=== PATIENT | male | born 1940 | race Caucasian/White ===

== ENCOUNTER 2016-11-24 17:00 | Inpatient (IN) | payer OTHER ==
[~2016-11-24] VITALS: Ht 160 cm; Wt 77.8 kg
[~2016-11-24 17:00] MED LIST: ALEVE220 M1 PO; AMLODIPINE BES2.5 MG PO; Aspirin Chewable PO; DOCUSATE SODIU100 MG PO; ERGOCALCIF50000 UNIT PO; L-LYSINE500 M1 PO; LOPRESSOR50 MG PO; Lofibra,Triglide PO; MEDROL DOSEPAK4 MG PO; MODURETIC 5/1 TABLET PO; Norco 7.5/325 PO; PARAFON FORTE500 MG PO; PAXIL10 MG PO; PHENERGAN-CODE120 ML PO; Paxil PO; RENVELA800 MG PO; TOPROL XL50 MG PO; TRICOR145 MG PO; TRILIPIX135 MG PO; TYLENOL EXTRA500 MG PO; Vicodin,Lortab 5/500 PO; ZOCOR20 MG PO; Zocor PO
[2016-11-24 17:23] LABS: POINT-OF-CARE METER ID UU13113702
[2016-11-24 18:24] LABS: EOSINOPHIL (%) 4.1 % (0-5); EOSINOPHIL COUNT 0.4 K/uL (0-0.3); HEMATOCRIT 42.8 % (38.0-50.0); IMMATURE GRANULOCYTE (%) 0.3 % (0.0-0.7); IMMATURE GRANULOCYTE COUNT 0.3 K/uL; MCH 30.5 PG (29.0-34.0); MCHC 32.2 G/DL (30.0-36.0); MCV 94.7 FL (86-99); MEAN PLAT.VOLUME 8.9 uM^3 (9.0-12.4); MONOCYTE (%) 3.3 % (3-12); MONOCYTE COUNT 0.3 K/uL (0-0.8); NEUTROPHIL (%) 81.2 % (45-76); NEUTROPHIL COUNT 7.6 K/uL (1.8-6.4); PLATELET COUNT 282 K/uL (156-360); RBC DIS.WIDTH-CV 15.9 % (11.8-14.6); RBC DIS.WIDTH-SD 52.1 % (39-53); RED BLOOD COUNT 4.52 M/uL (4.00-5.50); WHITE BLOOD COUNT 9.4 K/uL (4.1-10.2)
[2016-11-24 18:31] LABS: CHLORIDE 99 mEq/L (99-109); POTASSIUM 4.4 mEq/L (3.7-5.4); SODIUM 140 mEq/L (136-147)
[2016-11-24 18:34] LABS: GLUCOSE 130 mg/dL (70-99)
[2016-11-24 18:35] LABS: ANION GAP 13 MEQ/L (2-14); TOTAL BILIRUBIN 0.3 mg/dL (0.0-1.0)
[2016-11-24 18:37] LABS: ALKALINE PHOSPHATASE 61 IU/L (3-129); GFR ESTIMATE (CALCULATED) 19 mL/min/
[2016-11-24 18:38] LABS: UREA NITROGEN (BUN) 21 mg/dL (9-23)
[2016-11-24 18:56] LABS: TROP-I INTERPRETATION NEGATIVE; TROPONIN-I < 0.01 ng/mL (0.0-0.30)
[2016-11-24] MEDS ORDERED: [UNRECOGNIZED DRUG - OTHER] PO (20:28)
[2016-11-24] MEDS ORDERED: INJECTION (20:30)
[2016-11-24] MEDS ORDERED: RENAPLEX D PO (20:33)
[2016-11-24] MEDS ORDERED: NEPHRO-VITE RX1 EACH PO (20:39)
[2016-11-25 01:15] LABS: TROP-I INTERPRETATION NEGATIVE; TROPONIN-I < 0.01 ng/mL (0.0-0.30)
[2016-11-25 02:45] VITALS: BP 139/74; BP 99/58
[2016-11-25 07:06] LABS: EOSINOPHIL (%) 2.5 % (0-5); EOSINOPHIL COUNT 0.2 K/uL (0-0.3); HEMATOCRIT 37.5 % (38.0-50.0); IMMATURE GRANULOCYTE (%) 0.3 % (0.0-0.7); LYMPHOCYTE COUNT 1.5 K/uL (1.0-2.8); MCH 30.2 PG (29.0-34.0); MCHC 31.5 G/DL (30.0-36.0); MCV 95.9 FL (86-99); MEAN PLAT.VOLUME 9.6 uM^3 (9.0-12.4); MONOCYTE (%) 4.6 % (3-12); MONOCYTE COUNT 0.3 K/uL (0-0.8); NEUTROPHIL COUNT 5.1 K/uL (1.8-6.4); PLATELET COUNT 256 K/uL (156-360); RBC DIS.WIDTH-CV 15.9 % (11.8-14.6); RBC DIS.WIDTH-SD 55.3 % (39-53); RED BLOOD COUNT 3.91 M/uL (4.00-5.50); WHITE BLOOD COUNT 7.2 K/uL (4.1-10.2)
[2016-11-25 07:09] LABS: TROP-I INTERPRETATION NEGATIVE; TROPONIN-I 0.02 ng/mL (0.0-0.30)
[2016-11-25 07:17] LABS: ALKALINE PHOSPHATASE 52 IU/L (3-129); ANION GAP 8 MEQ/L (2-14); CHLORIDE 103 MEQ/L (99-109); GFR ESTIMATE (CALCULATED) 16 mL/min/; POTASSIUM 4.3 MEQ/L (3.7-5.4); SAMPLE HEMOLYSIS CHECK 0; SAMPLE ICTERIC CHECK 0; SAMPLE LIPEMIA CHECK 0; SODIUM 139 MEQ/L (136-147); TOTAL BILIRUBIN 0.4 MG/DL (0.0-1.0); UREA NITROGEN (BUN) 26 mg/dL (9-23)
[2016-11-25 07:18] LABS: GLUCOSE 93 mg/dL (70-99)
[2016-11-25 08:00] VITALS: BP 174/81
[2016-11-25 16:00] VITALS: BP 132/61
[2016-11-25 20:00] VITALS: BP 178/93
[2016-11-25 20:19] LABS: POINT-OF-CARE METER ID UU13113807
[2016-11-25 20:40] LABS: HEMATOCRIT 39.8 % (38.0-50.0); MCH 30.7 PG (29.0-34.0); MCHC 31.9 G/DL (30.0-36.0); MCV 96.1 FL (86-99); MEAN PLAT.VOLUME 9.6 uM^3 (9.0-12.4); PLATELET COUNT 256 K/uL (156-360); RBC DIS.WIDTH-CV 15.7 % (11.8-14.6); RBC DIS.WIDTH-SD 54.5 % (39-53); RED BLOOD COUNT 4.14 M/uL (4.00-5.50); WHITE BLOOD COUNT 7.2 K/uL (4.1-10.2)
[2016-11-25 20:50] LABS: POINT-OF-CARE METER ID UU13113807
[2016-11-25 20:53] LABS: ANION GAP 9 MEQ/L (2-14); CHLORIDE 99 MEQ/L (99-109); D-DIMER ELISA 0.42 mg/L FEU (< 0.57); POTASSIUM 4.3 MEQ/L (3.7-5.4); SAMPLE HEMOLYSIS CHECK 0; SAMPLE ICTERIC CHECK 0; SAMPLE LIPEMIA CHECK 0; SODIUM 136 MEQ/L (136-147)
[2016-11-25 20:54] LABS: TOTAL BILIRUBIN 0.3 MG/DL (0.0-1.0)
[2016-11-25 21:00] LABS: ALKALINE PHOSPHATASE 55 IU/L (3-129); GFR ESTIMATE (CALCULATED) 15 mL/min/; GLUCOSE 105 mg/dL (70-99); UREA NITROGEN (BUN) 33 mg/dL (9-23)
[2016-11-25 21:02] LABS: TROP-I INTERPRETATION NEGATIVE; TROPONIN-I 0.02 ng/mL (0.0-0.30)
[2016-11-26 00:10] VITALS: BP 172/72
[2016-11-26 06:09] VITALS: BP 172/76
[2016-11-26 09:28] LABS: HEMATOCRIT 35.6 % (38.0-50.0); MCH 30.3 PG (29.0-34.0); MCV 94.7 FL (86-99); MEAN PLAT.VOLUME 9.5 uM^3 (9.0-12.4); PLATELET COUNT 240 K/uL (156-360); RBC DIS.WIDTH-CV 15.6 % (11.8-14.6); RBC DIS.WIDTH-SD 53.7 % (39-53); RED BLOOD COUNT 3.76 M/uL (4.00-5.50); WHITE BLOOD COUNT 5.6 K/uL (4.1-10.2)
[2016-11-26 09:52] LABS: ANION GAP 8 MEQ/L (2-14); CHLORIDE 105 MEQ/L (99-109); POTASSIUM 4.2 MEQ/L (3.7-5.4); SAMPLE HEMOLYSIS CHECK 0; SAMPLE ICTERIC CHECK 0; SAMPLE LIPEMIA CHECK 0; SODIUM 138 MEQ/L (136-147)
[2016-11-26 09:57] LABS: GFR ESTIMATE (CALCULATED) 15 mL/min/; GLUCOSE 84 mg/dL (70-99); UREA NITROGEN (BUN) 36 mg/dL (9-23)
[2016-11-26 16:00] VITALS: BP 172/75
[2016-11-26 21:00] VITALS: BP 154/78
[2016-11-27 07:22] LABS: ANION GAP 7 MEQ/L (2-14); CHLORIDE 105 MEQ/L (99-109); GFR ESTIMATE (CALCULATED) 21 mL/min/; GLUCOSE 77 mg/dL (70-99); POTASSIUM 4.3 MEQ/L (3.7-5.4); SAMPLE HEMOLYSIS CHECK 0; SAMPLE ICTERIC CHECK 0; SAMPLE LIPEMIA CHECK 0; SODIUM 138 MEQ/L (136-147); UREA NITROGEN (BUN) 20 mg/dL (9-23)
[2016-11-27 08:54] VITALS: BP 159/77
[2016-11-27 12:19] VITALS: BP 152/72
== END 2016-11-27 15:15 | disposition home or self-care (01) | DRG 312 ==
LOC: EME 17:00 → 4SOUTH 20:32 → EDOF 20:32 → 4SOUTH 11-25 02:39
PROVIDERS: Emergency Medicine; Internal Medicine; Internal Medicine Nephrology; Physician Assistant
PROC: 5A1D00Z (ICD-10-PCS; principal; 2016-11-26)
DX: I95.1 Orthostatic hypotension (principal); N18.6 End stage renal disease; F02.81 Dementia in other diseases classified elsewhere, unspecified severity, with behavioral disturbance; G47.33 Obstructive sleep apnea (adult) (pediatric); G47.411 Narcolepsy with cataplexy; I25.10 Atherosclerotic heart disease of native coronary artery without angina pectoris; E78.5 Hyperlipidemia, unspecified; M47.9 Spondylosis, unspecified; G30.9 Alzheimer's disease, unspecified
CPT/HCPCS: 71010; 71020; 80048; 80053; 82948; 84484; 85025; 85027; 85379; 93005; 93306; 99281; 99285; G0378; J1630; J1644; J2060; J7030; J7040

== ENCOUNTER 2017-01-02 13:04 | Observation (INO) | payer OTHER ==
[~2017-01-02] VITALS: Ht 170.2 cm; Wt 79.5 kg
[~2017-01-02 13:04] MED LIST changes: +INJECTION; +NEPHRO-VITE RX1 EACH PO; +RENAPLEX D PO; +[UNRECOGNIZED DRUG - OTHER] PO
[2017-01-02 14:11] LABS: EOSINOPHIL (%) 8.2 % (0-5); EOSINOPHIL COUNT 0.6 K/uL (0-0.3); IMMATURE GRANULOCYTE (%) 0.8 % (0.0-0.7); IMMATURE GRANULOCYTE COUNT 0.6 K/uL; LYMPHOCYTE COUNT 2.7 K/uL (1.0-2.8); MCH 30.2 PG (29.0-34.0); MCHC 32.8 G/DL (30.0-36.0); MCV 92.1 FL (86-99); MONOCYTE (%) 7.8 % (3-12); MONOCYTE COUNT 0.6 K/uL (0-0.8); NEUTROPHIL (%) 48.3 % (45-76); NEUTROPHIL COUNT 3.8 K/uL (1.8-6.4); PLATELET COUNT 222 K/uL (156-360); RBC DIS.WIDTH-CV 14.8 % (11.8-14.6); RBC DIS.WIDTH-SD 48.2 % (39-53); RED BLOOD COUNT 3.91 M/uL (4.00-5.50); WHITE BLOOD COUNT 7.8 K/uL (4.1-10.2)
[2017-01-02 14:23] LABS: CHLORIDE 100 mEq/L (99-109); MAGNESIUM 2.2 mg/dL (1.3-2.7); POTASSIUM 3.9 mEq/L (3.7-5.4); SODIUM 137 mEq/L (136-147)
[2017-01-02 14:25] LABS: GLUCOSE 90 mg/dL (70-99)
[2017-01-02 14:26] LABS: ANION GAP 9 MEQ/L (2-14)
[2017-01-02 14:27] LABS: TOTAL BILIRUBIN 0.2 mg/dL (0.0-1.0)
[2017-01-02 14:29] LABS: ALKALINE PHOSPHATASE 69 IU/L (3-129); GFR ESTIMATE (CALCULATED) 16 mL/min/
[2017-01-02 14:30] LABS: UREA NITROGEN (BUN) 23 mg/dL (9-23)
[2017-01-02 14:32] LABS: TROP-I INTERPRETATION NEGATIVE; TROPONIN-I 0.06 ng/mL (0.0-0.30)
[2017-01-02 17:22] LABS: TROP-I INTERPRETATION NEGATIVE; TROPONIN-I 0.07 ng/mL (0.0-0.30)
[2017-01-02] MEDS ORDERED: COLACE100 MG PO (18:09)
[2017-01-02 21:46] VITALS: BP 190/95
[2017-01-02 22:00] VITALS: BP 168/72
[2017-01-02 23:22] LABS: TROP-I INTERPRETATION NEGATIVE; TROPONIN-I 0.07 ng/mL (0.0-0.30)
[2017-01-03 00:10] VITALS: BP 140/72
[2017-01-03 04:49] LABS: HEMATOCRIT 34.3 % (38.0-50.0); MCH 30.4 PG (29.0-34.0); MCHC 32.9 G/DL (30.0-36.0); MCV 92.2 FL (86-99); MEAN PLAT.VOLUME 9.3 uM^3 (9.0-12.4); PLATELET COUNT 223 K/uL (156-360); RBC DIS.WIDTH-CV 14.8 % (11.8-14.6); RBC DIS.WIDTH-SD 48.2 % (39-53); RED BLOOD COUNT 3.72 M/uL (4.00-5.50); WHITE BLOOD COUNT 7.8 K/uL (4.1-10.2)
[2017-01-03 04:55] VITALS: BP 119/59
[2017-01-03 05:03] LABS: CHLORIDE 102 mEq/L (99-109); SODIUM 139 mEq/L (136-147)
[2017-01-03 05:05] LABS: GLUCOSE 91 mg/dL (70-99)
[2017-01-03 05:06] LABS: ANION GAP 9 MEQ/L (2-14)
[2017-01-03 05:09] LABS: ALKALINE PHOSPHATASE 53 IU/L (3-129); GFR ESTIMATE (CALCULATED) 14 mL/min/; TOTAL BILIRUBIN 0.3 mg/dL (0.0-1.0)
[2017-01-03 05:10] LABS: UREA NITROGEN (BUN) 27 mg/dL (9-23)
[2017-01-03 05:13] LABS: TROP-I INTERPRETATION NEGATIVE; TROPONIN-I 0.06 ng/mL (0.0-0.30)
[2017-01-03 07:51] VITALS: BP 170/72
[2017-01-03 12:01] VITALS: BP 112/58
[2017-01-03] MEDS ORDERED: VENTOLIN HFA18 GM IH (13:18)
[2017-01-03] MEDS ORDERED: AMLODIPINE BESYL5 MG PO (13:18)
== END 2017-01-03 15:05 | disposition home or self-care (01) ==
LOC: EME → EDBD 13:04 → EME 13:04 → EDOF 20:58 → 5WEST 21:30
PROVIDERS: Emergency Medicine; Internal Medicine
DX: R00.8 Other abnormalities of heart beat (principal); I12.0 Hypertensive chronic kidney disease with stage 5 chronic kidney disease or end stage renal disease; N18.6 End stage renal disease; Z99.2 Dependence on renal dialysis; F03.90 Unspecified dementia, unspecified severity, without behavioral disturbance, psychotic disturbance, mood disturbance, and anxiety; J44.9 Chronic obstructive pulmonary disease, unspecified; G47.33 Obstructive sleep apnea (adult) (pediatric); G47.411 Narcolepsy with cataplexy; E78.00 Pure hypercholesterolemia, unspecified; I25.10 Atherosclerotic heart disease of native coronary artery without angina pectoris; E78.5 Hyperlipidemia, unspecified; Z91.19 Patient's noncompliance with other medical treatment and regimen
CPT/HCPCS: 80053; 83735; 84484; 85025; 85027; 93005; 99202; 99281; 99285; G0378; J1644

== ENCOUNTER 2017-01-27 09:10 | Observation (INO) | payer OTHER ==
[~2017-01-27] VITALS: Ht 167.6 cm; Wt 81.5 kg
[~2017-01-27 09:10] MED LIST changes: +AMLODIPINE BESYL5 MG PO; +COLACE100 MG PO; +VENTOLIN HFA18 GM IH
[2017-01-27 09:40] LABS: EOSINOPHIL COUNT 0.5 K/uL (0-0.3); HEMATOCRIT 37.3 % (38.0-50.0); IMMATURE GRANULOCYTE (%) 0.3 % (0.0-0.7); INSTRUMENT ABS NEUTROPHIL CT 4.2 K/uL; LYMPHOCYTE COUNT 1.6 K/uL (1.0-2.8); MCH 30.5 PG (29.0-34.0); MCHC 32.7 G/DL (30.0-36.0); MCV 93.3 FL (86-99); MEAN PLAT.VOLUME 8.8 uM^3 (9.0-12.4); MONOCYTE COUNT 0.4 K/uL (0-0.8); NEUTROPHIL COUNT 4.2 K/uL (1.8-6.4); PLATELET COUNT 266 K/uL (156-360); RBC DIS.WIDTH-CV 14.6 % (11.8-14.6); RBC DIS.WIDTH-SD 50.2 % (39-53); WHITE BLOOD COUNT 6.7 K/uL (4.1-10.2)
[2017-01-27 09:50] LABS: INTER. NORMALIZED RATIO 1.1; PROTHROMBIN TIME 10.7 (9.2-11.2); PTT 30.4 (25-32)
[2017-01-27 09:55] LABS: CHLORIDE 103 mEq/L (99-109); POTASSIUM 4.7 mEq/L (3.7-5.4); SODIUM 138 mEq/L (136-147)
[2017-01-27 09:56] LABS: GLUCOSE 101 mg/dL (70-99)
[2017-01-27 09:58] LABS: ANION GAP 9 MEQ/L (2-14)
[2017-01-27 10:00] LABS: GFR ESTIMATE (CALCULATED) 15 mL/min/
[2017-01-27 10:01] LABS: TROP-I INTERPRETATION NEGATIVE; TROPONIN-I 0.02 ng/mL (0.0-0.30); UREA NITROGEN (BUN) 26 mg/dL (9-23)
[2017-01-27] MEDS ORDERED: RENAPLEX-D PO (12:27)
[2017-01-27] MEDS ORDERED: NORVASC5 MG PO (13:00)
[2017-01-27 14:06] VITALS: BP 159/74
[2017-01-27 16:40] LABS: TROP-I INTERPRETATION NEGATIVE; TROPONIN-I 0.02 ng/mL (0.0-0.30)
[2017-01-27 19:00] VITALS: BP 167/82
[2017-01-27 22:01] LABS: TROP-I INTERPRETATION NEGATIVE; TROPONIN-I 0.04 ng/mL (0.0-0.30)
[2017-01-28 00:32] VITALS: BP 157/82
[2017-01-28 04:34] VITALS: BP 128/72
[2017-01-28 07:37] VITALS: BP 131/75
[2017-01-28 09:29] LABS: HEMATOCRIT 34.1 % (38.0-50.0); MCH 30.8 PG (29.0-34.0); MCHC 33.4 G/DL (30.0-36.0); MCV 92.2 FL (86-99); MEAN PLAT.VOLUME 9.1 uM^3 (9.0-12.4); PLATELET COUNT 282 K/uL (156-360); RBC DIS.WIDTH-CV 14.6 % (11.8-14.6); RBC DIS.WIDTH-SD 49.4 % (39-53); WHITE BLOOD COUNT 6.5 K/uL (4.1-10.2)
[2017-01-28 09:54] LABS: ANION GAP 9 MEQ/L (2-14); CHLORIDE 103 MEQ/L (99-109); GFR ESTIMATE (CALCULATED) 13 mL/min/; GLUCOSE 106 mg/dL (70-99); POTASSIUM 4.3 MEQ/L (3.7-5.4); SAMPLE HEMOLYSIS CHECK 0; SAMPLE ICTERIC CHECK 0; SAMPLE LIPEMIA CHECK 0; SODIUM 137 MEQ/L (136-147); UREA NITROGEN (BUN) 34 mg/dL (9-23)
[2017-01-28 14:31] VITALS: BP 130/63
[2017-01-28 14:32] VITALS: BP 116/58
[2017-01-28 14:33] VITALS: BP 116/52
== END 2017-01-28 16:40 | disposition home health service (06) ==
LOC: EME 09:10 → EDOF 10:37 → 5WEST 10:37 → EDOF 11:16 → 5WEST 13:56
PROVIDERS: Emergency Medicine; Internal Medicine; Internal Medicine Nephrology
PROC: 5A1D00Z (ICD-10-PCS; principal; 2017-01-28)
DX: R55 Syncope and collapse (principal); E86.1 Hypovolemia; I12.0 Hypertensive chronic kidney disease with stage 5 chronic kidney disease or end stage renal disease; N18.6 End stage renal disease; R41.0 Disorientation, unspecified; E78.5 Hyperlipidemia, unspecified; I49.3 Ventricular premature depolarization; R00.8 Other abnormalities of heart beat; F03.90 Unspecified dementia, unspecified severity, without behavioral disturbance, psychotic disturbance, mood disturbance, and anxiety; J44.9 Chronic obstructive pulmonary disease, unspecified; I25.10 Atherosclerotic heart disease of native coronary artery without angina pectoris; Z99.2 Dependence on renal dialysis; G47.33 Obstructive sleep apnea (adult) (pediatric)
CPT/HCPCS: 71010; 80048; 80069; 84484; 85025; 85027; 85610; 85730; 93005; 93880; 95819; 99281; 99285; G0257; G0378; J1644

== ENCOUNTER 2017-06-21 11:28 | Day surgery (SDC) | payer OTHER ==
[~2017-06-21] VITALS: Ht 167.6 cm; Wt 78.0 kg
[~2017-06-21 11:28] MED LIST changes: +NORVASC5 MG PO; +RENAPLEX-D PO
[2017-06-21 13:06] LABS: METH RESISTANT S AUREUS PCR NEGATIVE (NEGATIVE)
[2017-06-21 13:12] LABS: PROBE CHECK PASS; SPECIMEN PROCESSING CONTROL PASS
== END 2017-06-21 14:02 | disposition home or self-care (01) ==
LOC: CATH 11:28
PROVIDERS: Surgery
DX: T82.858A Stenosis of other vascular prosthetic devices, implants and grafts, initial encounter (principal); N18.6 End stage renal disease; Z99.2 Dependence on renal dialysis; E78.5 Hyperlipidemia, unspecified; Z87.891 Personal history of nicotine dependence; Y83.2 Surgical operation with anastomosis, bypass or graft as the cause of abnormal reaction of the patient, or of later complication, without mention of misadventure at the time of the procedure
CPT/HCPCS: 87641; C1725; C1769; C1894; J1644; J2250; J3010

== ENCOUNTER 2017-09-29 11:34 | Day surgery (SDC) | payer OTHER ==
[2017-09-29 13:39] LABS: METH RESISTANT S AUREUS PCR NEGATIVE (NEGATIVE)
[2017-09-29 13:40] LABS: PROBE CHECK PASS; SPECIMEN PROCESSING CONTROL PASS
== END 2017-09-29 14:20 | disposition home or self-care (01) ==
LOC: CATH 11:34
PROVIDERS: Surgery
DX: T82.858A Stenosis of other vascular prosthetic devices, implants and grafts, initial encounter (principal); N18.6 End stage renal disease; Z99.2 Dependence on renal dialysis; E78.00 Pure hypercholesterolemia, unspecified; Z87.891 Personal history of nicotine dependence
CPT/HCPCS: 87641; C1725; C1769; C1894; J1644; J2250; J3010